=== PATIENT | male | born 1950 | race Caucasian/White ===

== ENCOUNTER 2020-03-13 16:58 | Emergency (ER) | payer MEDICARE, BC ==
[2020-03-13] MEDS ORDERED: Diphtheria,Pertussis(Acell),Tetanus Vaccine 0.5 ML Syringe IM ONE (17:14)
[2020-03-13 17:18] VITALS: BP 153/87; PULSE 68
[2020-03-13] MEDS ORDERED: Bacitracin Oint 1 GM U/D Packet TOP ONE (17:23)
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
--- NOTE | 2020-03-13 17:49 | CT ---
Head CT Technique: Multiple axial sections through the brain were obtained. Intravenous contrast was not utilized. Comparison: No prior intracranial imaging is available. Findings: Ventricles are mildly dilated. Sulci over the convexities are mildly dilated. No abnormal parenchymal densities are seen. No evidence of intracranial hemorrhage. No midline shift or mass-effect is seen. Bone window settings were reviewed which showed no acute calvarial finding. Mastoid sinuses are clear. Mild mucosal thickening within the inferior maxillary sinuses and ethmoid sinuses are seen. Impression: 1. Probable mild chronic sinusitis. 2. Mild generalized atrophy. 3. No acute intracranial abnormality is appreciated. Diagnostic code #2 This report was dictated in MDT
== END 2020-03-13 18:15 | disposition home or self-care (01) ==
LOC: MW.ED 16:58
DX: S00.83XA Contusion of other part of head, initial encounter (principal); E66.9 Obesity, unspecified; Z68.27 Body mass index [BMI] 27.0-27.9, adult; Z79.82 Long term (current) use of aspirin; Z79.899 Other long term (current) drug therapy; Z23 Encounter for immunization; W55.22XA Struck by cow, initial encounter
CPT/HCPCS: 70450; 70450-26; 90471; 90715; 99283; 99284-25

== ENCOUNTER 2020-12-10 19:40 | Emergency (ER) | payer MEDICARE, BC ==
[2020-12-10] MEDS ORDERED: Sodium Chloride 0.9% 10 ML Syringe FLUSH PRN (19:45)
[2020-12-10] MEDS ORDERED: Sodium Chloride 0.9% 2.5 ML Syringe FLUSH PRN (19:45)
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
--- NOTE | 2020-12-10 20:31 | CR ---
INDICATION: Trauma. COMPARISON: None. TECHNIQUE: Four views of the left femur. FINDINGS: No fracture or dislocation. Hip and knee joints are intact. Soft tissues are unremarkable. IMPRESSION: Negative left femur series. Dictated by Nicolas Pollack MD @ 12/10/2020 8:29:07 PM Dictated by: Nicolas Pollack MD @ 12/10/2020 20:29:15 (Electronically Signed)
--- NOTE | 2020-12-10 20:31 | CR ---
INDICATION: Trauma. COMPARISON: None. TECHNIQUE: Single AP view of the hips and pelvis. FINDINGS: No fracture or dislocation. Hip joints are intact. Pubic symphysis and sacroiliac joints are intact. Soft tissues are unremarkable. IMPRESSION: No acute osseous abnormality. Dictated by Nicolas Pollack MD @ 12/10/2020 8:30:16 PM Dictated by: Nicolas Pollack MD @ 12/10/2020 20:30:24 (Electronically Signed)
[2020-12-10 20:47] LABS: BLOOD UREA NITROGEN,BUN 20 mg/dL (7.0-18.0); CARBON DIOXIDE,CO2 24.1 mmol/L (21.0-32.0); CHLORIDE,CL 105 mmol/L (98-107); GLUCOSE RANDOM 101 mg/dL (74-106); LIPASE 125 U/L (73-393); POTASSIUM,K 4.1 mmol/L (3.5-5.1); SODIUM,NA 138 mmol/L (136-148)
[2020-12-10 21:22] VITALS: BP 121/72; PULSE 78
== END 2020-12-10 21:25 | disposition home or self-care (01) ==
LOC: MW.ED 19:40
DX: S22.42XA Multiple fractures of ribs, left side, initial encounter for closed fracture (principal); S70.12XA Contusion of left thigh, initial encounter; S40.212A Abrasion of left shoulder, initial encounter; S00.81XA Abrasion of other part of head, initial encounter; Z79.82 Long term (current) use of aspirin; Z79.899 Other long term (current) drug therapy; W55.22XA Struck by cow, initial encounter
CPT/HCPCS: 36415; 71045; 71045-26; 72170; 72170-26; 73552-26-LT; 73552-LT; 80053; 83690; 84484; 85025; 93005; 93010; 99284; 99285-25